=== PATIENT | female | born 1940 | race Caucasian/White ===

== ENCOUNTER → 2016-04-07 | Outpatient (CLI) | payer OTHER ==
[~2016-04-07] VITALS: Ht 167.6 cm; Wt 91.6 kg
[~2016-04-07] MED LIST: ATENOLOL 100MG100 MG PO; CARBAMAZEPINE200 M2 PO; LISINOPRIL-HCT1 EAC2 PO; NABUMETONE 750750 M1 PO; OMEPRAZOLE40 MG PO; SYMBICORT160 MCG/4. INH; VENLAFAXINE HCL75 MG PO; XANAX 0.25 MG0.25 MG PO
--- NOTE | ~2016-04-07 | HPC ---
[facility] [place] [address] PAIN MANAGEMENT CONSULTATION Name: JANEL SHEIKH Room #: REG CHARLYJoseph Hdez#: [id number] Admission: 04/07/16 Attend Phys: Doyle Cramer DO Discharge: Date of : 42 Report #: [id number] THIS REPORT FOR: //name// CC: Rena Cramer The patient is a pleasant 76-year-old female who has not been seen at [facility] for greater than a year, last seen actually on 01/2015. I believe she was seen one time at [facility]. She returns to pain clinic today. 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 She has been treated for lumbar radiculopathy and right shoulder DJD in the past. I started the patient on carbamazepine 200 mg 1 in the morning, 2 at night for bilateral neuropathic pain of undetermined etiology. She has been worked up by podiatry, has radicular pain, but really not significant stenosis to consider etiology for this. She does not have diabetes. Nonetheless, she finds that the carbamazepine has been helpful. She also uses Relafen 750 mg b.i.d. PHYSICAL EXAMINATION: Today shows 76-year-old female, BMI is 32.6 kilograms per meter squared. Blood pressure is modestly elevated 163/76, pulse 69, respirations 20. Alert and oriented to person, place and time, judged to be a reasonable historian. Subjective dysesthesia to the lower feet though gait is tandem. She has mildly antalgic and minimally ataxic gait. Lower extremity strength, however, is preserved. Skin integument is intact. ASSESSMENT: Neuropathic pain, bilateral feet requiring complex medication management, history of lumbar radiculopathy and right shoulder pain. RECOMMENDATION: I will renew her Tegretol 200 mg 1 in the morning, 2 at night, taken the liberty of writing for 90 tablets with 5 refills. I will be happy to see her in 6 months for refill of her medication; however, I did strongly suggest she follow up with her general ophthalmologist physician to continue this medication as well as any schedul 2 or 3 narcotic medications. I will be happy to see as needed if she has recurrence of radicular symptoms. <ELECTRONICALLY SIGNED> By: Doyle Cramer DO 04/12/16 1607 1604 0052 Doyle Cramer DO /nt
[2016-04-07 13:51] VITALS: BP 163/76
== END | disposition home or self-care (01) ==
LOC: PAIN 07:19
DX: G57.83 Other specified mononeuropathies of bilateral lower limbs (principal); M25.511 Pain in right shoulder; G89.29 Other chronic pain; Z87.891 Personal history of nicotine dependence

== ENCOUNTER → 2016-06-01 | Outpatient (CLI) | payer OTHER ==
[~2016-06-01] VITALS: Ht 167.6 cm; Wt 99.2 kg
--- NOTE | ~2016-06-01 | HPC ---
[facility] [place] [address] [place] [address] PAIN MANAGEMENT CONSULTATION Name: CHARISSA SHEIKHSILVIO Saleem Room #: REG CHANDLER Hdez#: [id number] Admission: 06/01/16 Attend Phys: Doyle Cramer DO Discharge: Date of : 41 Report #: [id number] THIS REPORT FOR: //name// CC: Rena Cramer HISTORY: The patient is a 76-year-old female, who is being treated for neuropathic pain in bilateral lower extremities, lumbar radiculopathy and component of DJD, right shoulder. Last seen in the pain clinic, 04/07/2016. We started the patient on Tegretol 200 mg one in the morning and 2 at night. She returns to the pain clinic today noting that medication is helpful. She still has ongoing radicular pain. We discussed epidural injection at that time. She wished to proceed with injection, she prior had lumbar epidural injection in December 2014. She notes that the peripheral neuropathy (bilat feet) is better with the Trileptal. ASSESSMENT: Symptomatic lumbar radiculopathy, subjective pain score 7-8 on a 0-10 visual analog scale, left L4 pattern. PROCEDURE: Lumbar epidural injection under fluoroscopy. PROCEDURE NOTE: After both written and informed consent to include risk of spinal cord damage, increased pain, weakness and dural puncture, the patient was taken to the fluoroscopy suite, placed in the prone position. After sterile prep and drape, a skin wheal with lidocaine was raised. A 22-gauge epidural Tuohy needle was inserted in the midline at the level L4-L5 with good loss to resistance. Negative aspiration for cerebrospinal fluid or blood was noted. Then 1 mL of Omnipaque under biplanar fluoroscopy showed good spread within the epidural space. This was followed with 80 mg of triamcinolone plus 1 mL of 1.5% preservative-free Xylocaine, 0.5 mL Xylocaine was then injected to flush the needle; it was removed. The patient was monitored for an appropriate period of time and discharged in good and stable condition. The patient is discharged in good and stable condition. Follow up in 30 days to evaluate efficacy. <ELECTRONICALLY SIGNED> By: Doyle Cramer DO 06/01/16 1408 1152 1240 Doyle Cramer DO /nt
[2016-06-01 09:13] VITALS: BP 155/70
== END ==
LOC: PAIN 07:09
DX: M54.16 Radiculopathy, lumbar region (principal); M19.90 Unspecified osteoarthritis, unspecified site; I10 Essential (primary) hypertension; Z87.891 Personal history of nicotine dependence

== ENCOUNTER 2016-07-30 15:12 | Inpatient (IN) | payer OTHER ==
[~2016-07-30] VITALS: Ht 170.2 cm; Wt 95.7 kg
--- NOTE | ~2016-07-30 | EKG ---
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1940 Requested By: Papa Perez Order Number: [id number] MD: Jevon Perry Measurements Intervals [place] Rate: 73 P: 52 PA: 210 QRS: 26 QRSD: 87 T: 69 QT: 386 QTc: 426 Interpretive Statements Sinus rhythm Probable left atrial enlargement Probable left ventricular hypertrophy Anterior Q waves, possibly due to LVH Nonspecific T abnormalities, lateral leads No previous ECG available for comparison Electronically Signed On 08-01-2016 8:33:53 CDT by Jevon Perry [email or web address] <ELECTRONICALLY SIGNED> By: Jevon Perry MD, [facility] 08/01/16 0833 1525 1525 Jevon Perry MD, [facility] /EPI
[2016-07-30 15:13] VITALS: BP 200/85
[2016-07-30 15:43] LABS: ABSOLUTE NEUTROPHILS 5.7 thou/uL (1.4-8.2); BASOPHILS 1.4 % (0.0-2.0); EOSINOPHILS 0.8 % (0.0-3.0); HEMATOCRIT 42.1 % (37.0-47.0); HEMOGLOBIN 14.9 gm/dL (12.0-15.0); MCH 30.9 pg (26.0-34.0); MCHC 35.4 g/dL (28.0-37.0); MCV 87.2 fL (80.0-100.0); MONOCYTES 10.8 % (1.0-8.0); PLATELET COUNT 312 thou/uL (150-400); RBC 4.83 mil/uL (4.20-5.00); WBC 8.9 thou/uL (4.0-11.0)
[2016-07-30 15:49] LABS: MANUAL DIFF NO
[2016-07-30 15:54] LABS: ALBUMIN 3.5 g/dL (3.4-5.0); ALKALINE PHOSPHATASE 86 U/L (46-116); ANION GAP 6 mmol/L (7-16); BUN 9 mg/dL (7-18); CALCIUM 9.6 mg/dL (8.5-10.1); CHLORIDE 81 mmol/L (98-107); CO2 30 mmol/L (21-32); CREATININE 0.8 mg/dL (0.6-1.0); GLUCOSE 114 mg/dL (74-106); MAGNESIUM 1.8 mg/dL (1.8-2.4); POTASSIUM 3.5 mmol/L (3.5-5.1); SGOT 25 U/L (15-37); SGPT 32 U/L (30-65); TOTAL BILIRUBIN 0.5 mg/dL (<0.1-1.0); TOTAL PROTEIN 7.5 g/dL (6.4-8.2); TROPONIN-I < 0.04 ng/mL (<0.04-0.07)
[2016-07-30 15:55] LABS: URINE BILIRUBIN NEGATIVE (Negative); URINE BLOOD NEGATIVE (Negative); URINE COLOR YELLOW; URINE GLUCOSE-RANDOM* NEGATIVE (Negative); URINE KETONES NEGATIVE (Negative); URINE LEUKOCYTES-REFLEX NEGATIVE (Negative); URINE PROTEIN (DIPSTICK) TRACE (Negative); URINE UROBILINOGEN 0.2 E.U./dl (0.2-1.0)
[2016-07-30 15:57] LABS: SODIUM 117 mmol/L (136-145)
[2016-07-30 16:06] LABS: AMP/METHAMP Negative (Negative); BARBITURATES Negative (Negative); BENZODIAZEPINES Negative (Negative); COCAINE Negative (Negative); METHADONE Negative (Negative); OPIATES Negative (Negative); PCP Negative (Negative); THC Negative (Negative)
[2016-07-30 16:49] VITALS: BP 188/77
[2016-07-30 17:21] VITALS: BP 155/75
[2016-07-30 20:10] VITALS: BP 136/62
[2016-07-31 04:34] VITALS: BP 158/50
[2016-07-31 05:25] LABS: CREATININE 0.6 mg/dL (0.6-1.0); POTASSIUM 3.3 mmol/L (3.5-5.1)
[2016-07-31 06:06] LABS: HEMATOCRIT 41.1 % (37.0-47.0); HEMOGLOBIN 14.1 gm/dL (12.0-15.0); MCH 30.5 pg (26.0-34.0); MCHC 34.4 g/dL (28.0-37.0); MCV 88.8 fL (80.0-100.0); RBC 4.63 mil/uL (4.20-5.00); WBC 6.8 thou/uL (4.0-11.0)
[2016-07-31 08:29] VITALS: BP 113/50
[2016-07-31 16:05] VITALS: BP 162/55
[2016-07-31 19:28] VITALS: BP 156/60
[2016-08-01 05:41] LABS: HEMOGLOBIN 13.8 gm/dL (12.0-15.0); MCH 30.2 pg (26.0-34.0); MCHC 33.6 g/dL (28.0-37.0); MCV 89.9 fL (80.0-100.0); RBC 4.57 mil/uL (4.20-5.00); RDW 13.2 % (10.5-14.5); WBC 6.9 thou/uL (4.0-11.0)
[2016-08-01 05:55] LABS: CREATININE 0.7 mg/dL (0.6-1.0); POTASSIUM 3.8 mmol/L (3.5-5.1)
[2016-08-01 06:07] VITALS: BP 167/64
[2016-08-01 07:47] VITALS: BP 106/83
[2016-08-01] MEDS ORDERED: PRINIVIL20 MG PO (09:52)
[2016-08-01 10:25] VITALS: BP 106/83
[2016-08-01 12:48] VITALS: BP 106/83
== END 2016-08-01 11:20 | disposition home or self-care (01) | DRG 640 ==
LOC: ER 15:12 → 4N 16:16 → EROBS 16:16 → 4N 16:49
PROVIDERS: Emergency Medicine; Hospitalist
DX: E87.1 Hypo-osmolality and hyponatremia (principal); G93.41 Metabolic encephalopathy; S00.81XA Abrasion of other part of head, initial encounter; I10 Essential (primary) hypertension; F41.9 Anxiety disorder, unspecified; Y93.89 Activity, other specified; Z90.710 Acquired absence of both cervix and uterus; Z88.0 Allergy status to penicillin; Z87.891 Personal history of nicotine dependence; Z79.899 Other long term (current) drug therapy; W18.39XA Other fall on same level, initial encounter; Y92.89 Other specified places as the place of occurrence of the external cause; Y99.8 Other external cause status
CPT/HCPCS: 10790

== ENCOUNTER → 2016-09-21 | Outpatient (CLI) | payer OTHER ==
[~2016-09-21] MED LIST changes: +PRINIVIL20 MG PO
--- NOTE | ~2016-09-21 | HPC ---
[facility] [place] [address] PAIN MANAGEMENT CONSULTATION Name: ANDERSON SHEIKH Stiven Room #: REG CHARLYJoseph Hdez#: [id number] Admission: 09/21/16 Attend Phys: Doyle Cramer DO Discharge: Date of : 41 Report #: [id number] THIS REPORT FOR: //name// CC: Matthias Cramer HISTORY OF PRESENT ILLNESS: The patient is a pleasant 76-year-old female, prior seen in the pain clinic back in May, given epidural injection for ongoing lumbar radicular pain. The patient returns to the pain clinic today for a prolonged visit. She has had multiple concerns in the interval since we saw her. She had been on Tegretol for ongoing neuropathic pain. She ended up in the ER in late July (07/30/2016) for altered mental status and a subsequent fall. She was found to be hyponatremic. Her lisinopril and hydrochlorothiazide were stopped. She got a little better and was discharged home. She returns to pain clinic today, she notes the epidural injection had afforded good transient relief, improvement in functional status and pain relief for 3 months. Pain has gradually begun to recur. Pain is primarily low back and left leg with some chronic numbness, tingling and aching. She rates her pain an 8-9 on a 0-10 visual analog scale. She states she still has a little occasional altered mental status, feeling forgetful and a little bit lightheaded. PHYSICAL EXAMINATION: GENERAL: Shows a 76-year-old female. VITAL SIGNS: Blood pressure 144/70, pulse 60 and respirations are 20. NEUROLOGIC: Alert and oriented to person, place and time at this time, but again, she states she has some subjective episodes where she feels a little disoriented. MUSCULOSKELETAL: Rises from chair using the armrest. Modestly antalgic gait. Diffuse tenderness across the low back. Positive straight leg raise, left greater than right. ASSESSMENT: 1. Symptomatic lumbar radiculopathy, epidural injection under fluoroscopy. 2. Neuropathic pain, requiring complex medication management. RECOMMENDATIONS: Given hyponatremia and subjective lack of efficacy with Tegretol, suggest the patient start to wean this agent, dropping from 200 mg b.i.d. to one tablet at bedtime for 7 days and then discontinue. Tegretol does have a noted side effect of lowering sodium levels. This may be part of the culprit for her prior hyponatremia and may also be a culprit for some of her subjective episodic cognitive impairment. PROCEDURE NOTE PROCEDURE: Lumbar epidural [place] [address] PAIN MANAGEMENT CONSULTATION Name: ANDERSON SHEIKH Room #: REG CHANDLER Hdez#: [id number] Admission: 09/21/16 Attend Phys: Doyle Cramer DO Discharge: Date of : 41 Report #: [id number] PROCEDURE NOTE: After both written and informed consent to include risk of spinal cord damage, increased pain, weakness and dural puncture, the patient was taken to the fluoroscopy suite, placed in the prone position. After sterile prep and drape, a skin wheal with lidocaine was raised. A 22-gauge epidural Tuohy needle was inserted in the midline at the level of L5-S1 with good loss to resistance. Negative aspiration for cerebrospinal fluid or blood was noted. Then 1 mL of Omnipaque under biplanar fluoroscopy showed good spread within the epidural space. This was followed with 80 mg of triamcinolone plus 1 mL of 1.5% preservative-free Xylocaine, 0.5 mL Xylocaine was then injected to flush the needle; it was removed. The patient was monitored for an appropriate period of time and discharged in good and stable condition. By: 1229 1425 Doyle Cramer DO /nt
[2016-09-21 10:53] VITALS: BP 144/70
== END | disposition home or self-care (01) ==
LOC: PAIN 06-29 09:55
DX: M54.16 Radiculopathy, lumbar region (principal); G89.29 Other chronic pain; R41.82 Altered mental status, unspecified; Z87.891 Personal history of nicotine dependence; Z88.0 Allergy status to penicillin

== ENCOUNTER → 2016-12-01 | Outpatient (CLI) | payer OTHER ==
[~2016-12-01] VITALS: Ht 167.6 cm; Wt 93.4 kg
[~2016-12-01] MED LIST changes: +NEURONTIN 300300 M1 PO; +NEURONTIN100 MG PO; +PRINIVIL20 M1 PO
--- NOTE | ~2016-12-01 | HPC ---
[facility] [place] [address] [place] [address] PAIN MANAGEMENT CONSULTATION Name: SHEIKHANDERSON A Room #: REG CHANDLER Hdze#: [id number] Admission: 12/01/16 Attend Phys: Doyle Cramer DO Discharge: Date of : 41 Report #: [id number] THIS REPORT FOR: //name// CC: Matthias Cramer HISTORY OF PRESENT ILLNESS: The patient is a pleasant 76-year-old female being treated for lumbar radiculopathy secondary to spinal stenosis. Last visit on 09/21/2016 we talked about therapeutic options. Due to hyponatremia we elected to discontinue Tegretol trial, the patient was given weaning parameters. She was given epidural injection at that time, midline L5-S1. She returns to the pain clinic today, noting pain is problematic at 9 on a VAS. She notes that prior injections at L4-L5 had given her better relief, last injection afforded little bit less efficacy. She has rotated to gabapentin 100 mg, currently taking 3 at bedtime, is doing better with this. I have elected to renew gabapentin as a simple 300 mg at bedtime tablet. PHYSICAL EXAMINATION: Shows a 76-year-old female, BMI is 33.3 kilograms per meter squared. Vital signs stable as noted in the EMR. Rises from chair using armrest. Diffusely antalgic gait favoring the left leg. Positive straight leg raise at 30 degrees. Slight weakness globally on this side. ASSESSMENT: 1. Symptomatic lumbar radiculopathy. 2. Neuropathic pain with spinal stenosis. RECOMMENDATIONS: Epidural injection under fluoroscopy today at L4-L5, gabapentin renewed as a 300 mg prescription. Follow up as needed. PROCEDURE: Lumbar epidural injection under fluoroscopy. PROCEDURE NOTE: After both written and informed consent to include risk of spinal cord damage, increased pain, weakness and dural puncture, the patient was taken to the fluoroscopy suite, placed in the prone position. After sterile prep and drape, a skin wheal with lidocaine was raised. A 22-gauge epidural Tuohy needle was inserted in the midline at L4-L5 with good loss to resistance. Negative aspiration for cerebrospinal fluid or blood was noted. Then 1 mL of Omnipaque under biplanar fluoroscopy showed good spread within the epidural space. This was followed with 80 mg of triamcinolone plus 1 mL of 1.5% preservative-free Xylocaine, 0.5 mL Xylocaine was then injected to flush the needle; it was removed. The patient was monitored for an appropriate period of time and discharged in good and stable condition. <ELECTRONICALLY SIGNED> By: Doyle Cramer DO 12/07/16 0847 1216 55 Doyle Cramer DO /nt
[2016-12-01 11:22] VITALS: BP 146/81
== END | disposition home or self-care (01) ==
LOC: PAIN 09:01
DX: M54.16 Radiculopathy, lumbar region (principal); Z88.0 Allergy status to penicillin; M48.06 Spinal stenosis, lumbar region; Z79.899 Other long term (current) drug therapy; Z68.33 Body mass index [BMI] 33.0-33.9, adult

== ENCOUNTER → 2016-12-14 | Outpatient (CLI) | payer OTHER ==
[~2016-12-14] VITALS: Ht 167.6 cm; Wt 93.9 kg
--- NOTE | ~2016-12-14 | HPC ---
[facility] [place] [address] [place] [address] PAIN MANAGEMENT CONSULTATION Name: ANDERSON SHEIKH Room #: REG CHANDLER Hdez#: [id number] Admission: 12/14/16 Attend Phys: Doyle Cramer DO Discharge: Date of : 41 Report #: [id number] THIS REPORT FOR: //name// CC: Matthias Cramer The patient is a very pleasant 76-year-old female, well known to pain clinic, being treated for lumbar radiculopathy secondary to spinal stenosis, neuropathic pain component. The patient has done well with occasional epidural injections, she had injection 12/01/2016, prior she had an injection 09/21/2016, and 06/01/2016. These 3 injections have afforded overall improvement of pain. She notes pain is about a 6 on VAS, but she feels she is much more functional. Pain is in the low back, left buttock and leg down to the foot. She notes the pain is exacerbated with standing, walking and bending. Again, she does feel; however, the injections have afforded good relief. She is using gabapentin 300 mg at bedtime. Does not use any opiate analgesics. PHYSICAL EXAMINATION: Today, shows a 76-year-old female, BMI is 33.4 kg/m2. Vital signs are stable as noted in the EMR. Rises from chair using armrest. Gait is modestly antalgic. Lower extremity strength; however, is generally symmetric. Straight leg raise negative at this time. Patellar and Achilles reflexes are diminished, but preserved. ASSESSMENT: Symptomatic lumbar radiculopathy secondary to spinal stenosis, neuropathic pain well treated with prior epidural injections and gabapentin 300 mg at bedtime. RECOMMENDATION: After discussion with the patient today, we have elected to move forward with continuing gabapentin 300 mg, a prescription for 30 tablets with 3 refills were given. I will be happy to see her on an as needed basis for interventional therapy, again she said good transient relief with epidural injections, but presently I do not think symptoms warrant interventional therapy at this time. Thank you for allowing me to participate in the patient's care. I will keep you abreast of her progress. By: 1527 08 Doyle Cramer DO /nt
[2016-12-14 11:09] VITALS: BP 152/71
== END | disposition home or self-care (01) ==
LOC: PAIN 06:15
DX: M54.16 Radiculopathy, lumbar region (principal); M48.06 Spinal stenosis, lumbar region; G62.9 Polyneuropathy, unspecified; Z68.33 Body mass index [BMI] 33.0-33.9, adult; Z87.891 Personal history of nicotine dependence

== ENCOUNTER 2017-08-14 12:25 | Emergency (ER) | payer OTHER ==
[~2017-08-14] VITALS: Ht 162.6 cm; Wt 95.3 kg
--- NOTE | ~2017-08-14 | EKG ---
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1940 Requested By: Purnima Lisa Order Number: [id number] MD: Jevon Perry Measurements Intervals [place] Rate: 54 P: 89 NV: 205 QRS: 34 QRSD: 75 T: 168 QT: 456 QTc: 433 Interpretive Statements Sinus rhythm Probable LVH with secondary repol abnrm Anterior Q waves, possibly due to LVH Compared to ECG 07/30/2016 15:25:31 No significant change was found Electronically Signed On 08-14-2017 15:55:28 CDT by Jevon Perry [email or web address] <ELECTRONICALLY SIGNED> By: Jevon Perry MD, [facility] 08/14/17 1555 1218 1218 Jevon Perry MD, [facility] /EPI
[2017-08-14 12:46] LABS: BASOPHILS 0.9 % (0.0-2.0); EOSINOPHILS 2.5 % (0.0-3.0); HEMATOCRIT 45.4 % (37.0-47.0); HEMOGLOBIN 15.3 gm/dL (12.0-15.0); LYMPHOCYTES 32.1 % (24.0-44.0); MCH 30.4 pg (26.0-34.0); MCHC 33.7 g/dL (28.0-37.0); MONOCYTES 11.1 % (1.0-8.0); PLATELET COUNT 246 thou/uL (150-400); POLYS 53.4 % (36.0-66.0); RBC 5.04 mil/uL (4.20-5.00); WBC 7.5 thou/uL (4.0-11.0)
[2017-08-14 12:49] LABS: CALCIUM 9.6 mg/dL (8.5-10.1); CREATININE 0.8 mg/dL (0.6-1.0); POTASSIUM 3.7 mmol/L (3.5-5.1)
[2017-08-14] MEDS ORDERED: CHILDREN'S ASPI81 M1 PO (13:28)
== END 2017-08-14 14:15 | disposition home or self-care (01) ==
LOC: ER 12:25
PROVIDERS: Emergency Medicine
DX: R47.89 Other speech disturbances (principal); I10 Essential (primary) hypertension; K21.9 Gastro-esophageal reflux disease without esophagitis; F41.9 Anxiety disorder, unspecified; Z87.891 Personal history of nicotine dependence; Z88.0 Allergy status to penicillin

== ENCOUNTER 2017-11-01 23:12 | Inpatient (IN) | payer OTHER ==
[~2017-11-01] VITALS: Ht 165.1 cm; Wt 103.8 kg
--- NOTE | ~2017-11-01 | 2DMMODE ---
[facility] [address] [place] [address] 2 D/M-MODE ECHOCARDIOGRAM Name: SHEIKHANDERSON A Room #: 354-P [facility] IN .R.#: [id number] Admission: 11/02/17 Attend Phys: Matthias Rivas, Discharge: Date of : 42 Date of Service: 11/02/17 1535 Report #: [id number] THIS REPORT FOR: //name// APPROVED REPORT Study performed: 11/02/2017 11:22:58 EXAM: Comprehensive 2D, Doppler, and color-flow Echocardiogram Patient Location: Echo lab Room #: 354 Status: routine BSA: 2.09 HR: 59 bpm BP: 175/103 mmHg Rhythm: NSR Other Information Study Quality: Adequate Technically limited study due to lung disease, body habitus. Indications TIA. HTN urgency. Echo Enhancing Agent Indication: Rule out Shunt Agent(s) / Amount(s) Used: Agitated Saline 6 cc 2D Dimensions RVDd: 34.87 mm LVEF(%): 61.16 (>50%) IVSd: 12.54 (7-11mm) LVOT Diam: 19.91 (18-24mm) LVDd: 34.57 mm PWd: 11.53 (7-11mm) Ascending Ao: 33.98 (22-36mm) LVDs: 23.53 (25-40mm) Aortic Root: 31.12 mm Encarnacion's LVEF: 61.16 % Volumes Left Atrial Volume (Systole) Single Plane 4CH: 34.40 mL Single Plane 2CH: 57.81 mL LA ESV Index: 23.00 mL/m2 Aortic Valve AoV Peak Montrell.: 1.49 m/s AO Peak Gr.: 8.85 mmHg LVOT Max P.78 mmHg [facility] [address] [place] [address] 2 D/M-MODE ECHOCARDIOGRAM Name: ANDERSON SHEIKH Room #: 354-P [facility] IN M.R.#: [id number] Admission: 11/02/17 Attend Phys: Matthias Rivas, Discharge: Date of : 42 Date of Service: 11/02/17 1535 Report #: [id number] LVOT Max V: 1.39 m/s JAYDE Vmax: 2.92 cm2 Mitral Valve E/A Ratio: 0.8 MV Decel. Time: 300.93 ms MV E Max Montrell.: 1.00 m/s MV A Montrell.: 1.33 m/s MV PHT: 87.27 ms IVRT: 107.27 ms Pulmonary Vein P Vein S: 0.59 m/s P Vein A: 0.32 m/s P Vein D: 0.45 m/s P Vein A Dur.: 93.4 msec P Vein S/D Ratio: 1.31 Tricuspid Valve RAP Estimate: 5.00 mmHg Left Ventricle The left ventricle is normal size. There is normal LV segmental wall motion. Mild concentric left ventricular hypertrophy. Left ventricular systolic function is hyperdynamic. LVEF is 65-70%. Mild diastolic dysfunction is present (impaired relaxation pattern). Right Ventricle The right ventricle is normal size. The right ventricular systolic function is normal. Atria The left atrium size is normal. No shunting noted by contrast bubble injection. The right atrium size is normal. Aortic Valve The aortic valve is not well visualized. No aortic regurgitation is present. There is no aortic valvular stenosis. Mitral Valve The mitral valve is normal in structure. Moderate mitral annular calcification. Trace to mild mitral regurgitation. No evidence of mitral valve stenosis. Tricuspid Valve The tricuspid valve is normal in structure. There is no tricuspid valve regurgitation noted. Unable to assess PA pressure. [facility] [address] [place] [address] 2 D/M-MODE ECHOCARDIOGRAM Name: ANDERSON SHEIKH Room #: 354-P [facility] IN [facility]#: [id number] Admission: 11/02/17 Attend Phys: Matthias Rivas, Discharge: Date of : 42 Date of Service: 11/02/17 1535 Report #: [id number] Pulmonic Valve Pulmonic valve is not well visualized. Great Vessels The aortic root is normal in size. The ascending aorta is normal in size. IVC is normal in size and collapses >50% with inspiration. Pericardium There is no pericardial effusion. <Conclusion> The left ventricle is normal size. Mild concentric left ventricular hypertrophy. Left ventricular systolic function is hyperdynamic. Mild diastolic dysfunction is present (impaired relaxation pattern). The right ventricle is normal size. The left atrium size is normal. No shunting noted by contrast bubble injection. There is no aortic valvular stenosis. The mitral valve is normal in structure. Moderate mitral annular calcification. Trace to mild mitral regurgitation. There is no pericardial effusion. <ELECTRONICALLY SIGNED> By: Macario Godoy MD 11/02/17 1535 1535 1535 Macario Godoy MD /INF
--- NOTE | ~2017-11-01 | EKG ---
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 : 1940 Requested By: Yeni Jefferson Order Number: [id number] MD: Jevon Perry Measurements Intervals [place] Rate: 61 P: 0 WI: 164 QRS: 46 QRSD: 82 T: 228 QT: 445 QTc: 449 Interpretive Statements Sinus rhythm Anteroseptal infarct, old Repol abnrm suggests ischemia, anterolateral Baseline wander in lead(s) V5 Compared to ECG 08/14/2017 12:18:38 No significant change was found Electronically Signed On 11-02-2017 8:55:04 CDT by Jevon Perry [email or web address] <ELECTRONICALLY SIGNED> By: Jevon Perry MD, [facility] 11/02/17 0855 2335 2335 Jevon Perry MD, [facility] /EPI
--- NOTE | ~2017-11-01 | HC ---
[facility] [place] [address] CONSULTATION Name: ANDERSON SHEIKH Stiven Room #: 354-P [facility] M.R.#: [id number] Admission: 11/02/17 Attend Phys: Matthias Rivas MD Discharge: 11/02/17 Date of : 42 Report #: [id number] THIS REPORT FOR: //name// CC: Matthias Rivas DATE OF SERVICE: 11/02/2017 HISTORY OF PRESENT ILLNESS: This is a 77-year-old female patient who was seen by me for an episode of speech difficulty. This came spontaneously without any trauma yesterday. She does not know the exact duration, but it lasted for a short period of time and then resolved by itself. There was no associated headache. She does not have any prior history of TIA, stroke or migraine. She did have some right-sided symptom associated with this. REVIEW OF SYSTEMS: Indicates that she is hypertensive. She says her memory has never been very good. It has not changed much. She said she does not check her blood pressure too often because her blood pressure cuff is not working. At one time, she did have hyponatremia. She is taking aspirin for a few months now. She does take Zoloft, but she does not feel she is depressed. She does have some GI problems. She has a history of anxiety, carpal tunnel syndrome, hysterectomy. Rest of the 14-point review of system was mostly unremarkable. She is not complaining of any new eye, ENT, cardiac, GI, , musculoskeletal, constitutional, dermatological, hematological, throat, allergic symptom associated with present symptomatology. She is having some cough, but that is a few weeks' duration. PAST MEDICAL HISTORY: Negative for stroke. FAMILY HISTORY: Negative for early age stroke. SOCIAL HISTORY: She used to smoke, but she stopped smoking a few years ago. She does not drink alcohol. PHYSICAL EXAMINATION: GENERAL: Indicates she is alert. She is responsive. She can follow simple and complex commands. Her speech, concentration, fund of knowledge and memory is at her baseline. Cranial nerve examination 2-12 looks unremarkable. She has a symmetrical strength, sensation and reflexes in all 4 extremities. There is no meningeal sign. I could not look at the fundus very well. There is no cerebellar sign. She is a moderately obese individual who is reasonably well-developed. Her hearing and vision looks adequate. VITAL SIGNS: Blood pressure is 175/103, respiration is 20, pulse is 64, and temperature is 98.4. NECK: She has no thyroid mass or carotid bruit. CARDIAC: Examination is unremarkable. LUNGS: No respiratory difficulty or rhonchi was noticed on either side. [address] [address] CONSULTATION Name: SHEIKHANDERSON A Room #: 354-P [facility] M.R.#: [id number] Admission: 11/02/17 Attend Phys: Matthias Rivas MD Discharge: 11/02/17 Date of : 42 Report #: [id number] EXTREMITIES: Pulses are somewhat difficult to feel, but she has no edema, cyanosis or jaundice. LABORATORY DATA: Her white count is normal at 8.4. She did have a CT scan of head in the Emergency Room, which is probably unremarkable. IMPRESSION: The patient's symptoms are suggestive of transient ischemic attack. Her workup is already ordered by Dr. Rivas, especially MRI of the brain, MRA of the head and neck, echocardiogram. We will check that. We will do some basic blood workup to look for any predisposing factor for cerebrovascular accident. She is already on aspirin. We may have to switch her to Plavix depending upon the workup. RECOMMENDATIONS: 1. I agree with your plan of MRI and MRA. 2. We will get some additional blood workup done, which will be stroke related. 3. After the workup is complete, we will see if we need to switch her to Plavix. 4. She needs to live a healthy lifestyle including doing exercise and losing weight and that was discussed with her. Thank you very much for this referral and if you have any questions, please feel free to contact me. <ELECTRONICALLY SIGNED> By: Edmond Frazier MD 11/05/17 [id number] Edmond Frazier MD /nt
[2017-11-01 23:12] VITALS: BP 177/87
[~2017-11-01 23:12] MED LIST changes: +CHILDREN'S ASPI81 M1 PO
[2017-11-01] MEDS ORDERED: SERTRALINE HCL50 MG PO (23:37)
[2017-11-01] MEDS ORDERED: PROAIR HFA8.5 GM INH (23:38)
[2017-11-01 23:53] LABS: ABSOLUTE NEUTROPHILS 4.5 thou/uL (1.4-8.2); BASOPHILS 0.4 % (0.0-2.0); EOSINOPHILS 2.1 % (0.0-3.0); HEMATOCRIT 43.6 % (37.0-47.0); HEMOGLOBIN 14.8 gm/dL (12.0-15.0); MCH 30.9 pg (26.0-34.0); MCV 90.8 fL (80.0-100.0); MONOCYTES 8.3 % (1.0-8.0); PLATELET COUNT 217 thou/uL (150-400); POLYS 53.2 % (36.0-66.0); RDW 13.9 % (10.5-14.5); WBC 8.4 thou/uL (4.0-11.0)
[2017-11-02] VITALS (9 sets, daily range): BP systolic 175–212; BP diastolic 51–132
[2017-11-02 00:03] LABS: CALCIUM 9.4 mg/dL (8.5-10.1); CREATININE 0.9 mg/dL (0.6-1.0); POTASSIUM 3.3 mmol/L (3.5-5.1)
[2017-11-02 00:07] LABS: APTT 24.8 Seconds (24.5-32.8)
[2017-11-02 00:31] LABS: URINE BILIRUBIN NEGATIVE (Negative); URINE BLOOD TRACE (Negative); URINE CLARITY CLEAR; URINE COLOR YELLOW; URINE GLUCOSE-RANDOM* NEGATIVE (Negative); URINE KETONES NEGATIVE (Negative); URINE LEUKOCYTES NEGATIVE (Negative); URINE NITRITE NEGATIVE (Negative); URINE PROTEIN (DIPSTICK) TRACE (Negative); URINE SPECIFIC GRAVITY 1.025 (1.005-1.035); URINE UROBILINOGEN 0.2 E.U./dl (0.2-1.0)
[2017-11-02 11:26] LABS: TSH 2.4 uIU/mL (0.358-3.740)
[2017-11-02] MEDS ORDERED: ATORVASTATIN CA40 MG PO (15:43)
[2017-11-02] MEDS ORDERED: ASPIRIN325 PO (15:44)
== END 2017-11-02 16:38 | disposition home or self-care (01) | DRG 69 ==
LOC: ER 23:12 → EROBS 11-02 00:42 → 3W 11-02 00:42
PROVIDERS: Emergency Medicine; Psychiatry & Neurology Neuromuscular Medicine
DX: G45.9 Transient cerebral ischemic attack, unspecified (principal); I10 Essential (primary) hypertension; K21.9 Gastro-esophageal reflux disease without esophagitis; F41.9 Anxiety disorder, unspecified; I16.0 Hypertensive urgency; E78.5 Hyperlipidemia, unspecified; Z90.710 Acquired absence of both cervix and uterus; Z88.0 Allergy status to penicillin; Z87.891 Personal history of nicotine dependence; Z79.899 Other long term (current) drug therapy
CPT/HCPCS: 10879